=== PATIENT | female | born 1990 | race African-American/Black ===

== ENCOUNTER 2021-09-01 16:05 | Emergency (ER) | payer SELFPAY ==
[2021-09-01] MEDS ORDERED: Boostrix 0.5 ML (Tdap) VIAL ONE (16:41)
== END 2021-09-01 17:05 | disposition home or self-care (01) ==
LOC: MADERS 16:05
DX: S40.022A Contusion of left upper arm, initial encounter (principal); S40.021A Contusion of right upper arm, initial encounter; S90.02XA Contusion of left ankle, initial encounter; S60.221A Contusion of right hand, initial encounter; S60.511A Abrasion of right hand, initial encounter; S50.812A Abrasion of left forearm, initial encounter; V44.6XXA Car passenger injured in collision with heavy transport vehicle or bus in traffic accident, initial encounter
CPT/HCPCS: 90471; 90715